=== PATIENT | male | born 1970 | race African-American/Black ===

== ENCOUNTER 2016-06-25 12:06 | Emergency (ER) | payer BC, OTHER ==
[2016-06-25 12:24] VITALS: BP 151/88
--- NOTE | 2016-06-25 13:08 | ERNOTE ---
Medical Problem HPI - General Chief Complaint: General Assessment Time Seen by Provider: 06/25/16 12:53 Source: patient Exam Limitations: no limitations - Immun/Allergies/Home Medications Immunizations: IMMUNIZATION HX Immunizations Up to Date Yes History of Influenza Vaccine No Hx Pneumococcal Vaccination Yes Allergies/Adverse Reactions: Allergies No Known Allergies Allergy (Verified 06/25/16 12:24) Home Medications: HOME MEDICATIONS Albuterol Sulfate [Ventolin Hfa] 18 gm IH QID #1 inhaler 01/30/16 [Last Taken Unknown] Cyclobenzaprine HCl [Flexeril] 10 mg PO TID PRN #30 tab 06/25/16 [Last Taken Unknown] - History of Present History Narrative: The patient has had a 'lump' on the right side of his back for 10+ years that hs not changed much in size and has not hurt before. Since yesterday he has had pain in his right lower back and thinks it might be caused by the 'lump'. He denies any injury, he started a new job three weeks ago at [employer] that involves a lot of reaching and twisting, not much heavy lifting. He has been taking aleve, current pain level is 3/10 Review of Systems - Review of Systems Constitutional: Absent: recent illness, fever ENT: Absent: sore throat Respiratory: Absent: shortness of breath, cough Cardiology: Absent: chest pain Gastrointestinal/Abdominal: Present: nausea. Absent: vomiting, diarrhea, abdominal pain Genitourinary: Absent: no symptoms reported Musculoskeletal: Present: back pain Neurological: Absent: weakness, numbness, tingling - Patient's Past Medical History Patient History - Medical: No pertinent hx Patient History - Cardiac/Respiratory: Asthma Patient History - Cancer: No Hx of Cancer Patient History - Surgical Procedures: No surgical history, Other Patient History - Other: None - Social History Living Situations: home Abuse History: No History of abuse Psych History: Hx of Anxiety, Hx of Depression Smoking Status: Former smoker Alcohol Use: rarely Drug Use: none - Immunizations Immunizations Up to Date: Yes Hx Pneumococcal Vaccination: Yes History of Influenza Vaccine: No Physical Exam - Physical Exam General Appearance: Present: wd/wn, alert, no apparent distress Respiratory: Present: no respiratory distress, normal breath sounds, no accessory muscle use, lungs clear Cardiovascular/Chest: Present: regular rate, rhythm, no murmur Back Exam: Present: normal inspection, no CVA tenderness, no vertebral tenderness, muscle spasm - right paraspinal, other - small subcutaneous nodule in right CVA area,mobile, non tender Neurological Exam: Present: alert, oriented, normal mood/affect, no motor/ sensory deficits Skin Exam: Present: normal color, warm/dry ED Progress - Vital Signs Patient's Vital Signs:: I have reviewed the patient's vital signs. Vital Signs: Vital Signs 06/25/16 12:19 Temperature 36.8 C Pulse Rate 74 Respiratory 14 Rate Blood Pressure 151/88 O2 Sat by Pulse 98 Oximetry - Progress/Reassessment Chief Complaint: General Assessment Departure - Departure Clinical Impression: Back pain Qualifiers: Back pain location: low back pain Chronicity: acute Back pain laterality: right Sciatica presence: without sciatica Qualified Code(s): M54.5 - Low back pain Disposition: Home self-care Condition: Good Instructions: Back Pain, Adult, [id number], Form - Excuse from Work, School, or Physical Activity Additional Instructions: continue to use aleve or advil for pain, use the muscle relaxant as needed and call your doctor for follow up if your symptoms don't get better over the next week Referrals: Norma Simon, [Primary Care Provider] - Prescriptions: Cyclobenzaprine HCl [Flexeril] 10 mg PO TID PRN #30 tab PRN Reason: MUSCLE SPASMS
== END 2016-06-25 13:08 | disposition home or self-care (01) ==
LOC: ER 12:06
DX: M54.5 Low back pain (principal); Z87.891 Personal history of nicotine dependence; J45.909 Unspecified asthma, uncomplicated

== ENCOUNTER 2016-12-05 19:15 | Emergency (ER) | payer OTHER ==
--- NOTE | 2016-12-05 19:45 | ERNOTE ---
<CiroFreddie - Last Filed: 12/05/16 19:37> Upper Extremity HPI - Narrative Date of Service: 12/05/16 - General Extremities Pain Location: shoulder: left Time Seen by Provider: 12/05/16 19:30 Source: patient Exam Limitations: no limitations - Immun/Allergies/Home Medications Immunizations: IMMUNIZATION HX Immunizations Up to Date Yes History of Influenza Vaccine No Hx Pneumococcal Vaccination Yes Allergies/Adverse Reactions: Allergies Allergy/AdvReac Type Severity Reaction Status Date / Time No Known Allergies Allergy Verified 06/25/16 12:24 Home Medications: HOME MEDICATIONS Cyclobenzaprine HCl [Flexeril] 10 mg PO TID PRN #30 tab 06/25/16 [Last Taken Unknown] Albuterol Sulfate [Ventolin Hfa] 18 gm IH QID PRN 12/05/16 [Last Taken Unknown] HYDROcodone/ACETAMINOPHEN [[place] 10-325 Tablet] 1 each PO Q4H PRN #30 tablet [Last Taken Unknown] - History of Present Illness Narrative: Patient presents with 3 weeks of progressive left shoulder pain. Most of the pain is localized diffusely around the left shoulder. It has been constant but gradually worsening. No fever, no redness or swelling but they have noticed muscle wasting around that left shoulder. Generally feels weakness but no focal weakness. Occasionally will have pain shoot down the back of the arm to the wrist but that is uncommon.. He has been trying to get in to see ortho but has not yet been able to schedule an appointment. pain worse with movement of the shoulder. Occurred: other - 3 weeks Method of Injury: Reports: no apparent injury Modifying Factors - (Improves): Reports: other - nothing Modifying Factors - (Worsens): Reports: movement Associated Symptoms: Denies: numbness distally Other Injuries: Reports: none Prior Treament: Denies: recently seen Review of Systems - Review of Systems Constitutional: Absent: fever Respiratory: Absent: shortness of breath Cardiology: Absent: chest pain Musculoskeletal: Present: See HPI Skin: Absent: rash Neurological: Present: See HPI - Patient's Past Medical History Patient History - Medical: No pertinent hx Patient History - Cardiac/Respiratory: Asthma, TIA Patient History - Cancer: No Hx of Cancer Patient History - Surgical Procedures: No surgical history, Other, Hernia Repair , Orthopedic Patient History - Other: None - Social History Living Situations: spouse Abuse History: No History of abuse Psych History: Hx of Anxiety, Hx of Depression Smoking Status: Never smoker Have you smoked in the past 12 months: No Do you dip or chew tobacco: No Alcohol Use: rarely Drug Use: none - Immunizations Immunizations Up to Date: Yes Hx Pneumococcal Vaccination: Yes History of Influenza Vaccine: No Physical Exam - Physical Exam General Appearance: Present: alert, no apparent distress Head Exam: Present: normal inspection, no evidence of injury Eye Exam: Normal inspection: bilateral, PERRL: bilateral Ears, Nose, Throat: Present: normal ENT inspection Neck: Present: normal inspection, nontender, other - no localizing post vertebral tenderness Respiratory: Present: no respiratory distress, normal breath sounds Cardiovascular/Chest: Present: regular rate, rhythm, normal peripheral pulses, other - strong radial pulse Gastrointestinal/Abdominal: Present: normal bowel sounds, nontender, soft Back Exam: Present: no vertebral tenderness Extremity Exam: Present: other - There appears to be some muscle wasting around the left shoulder girdle. There is tenderness in the musclature diffusely around the shoulder. No redness or warmth. ROM compromised by pain but no clear suggestion of septic arthritis. Neurological Exam: Present: alert, other - sensation intact. Biceps tendon reflex intact. Pain limits exam but no clear focal motor or sensory deficits. Skin Exam: Present: normal color, warm/dry ED Progress - Vital Signs Patient's Vital Signs:: I have reviewed the patient's vital signs. Vital Signs: Vital Signs 12/05/16 19:20 Temperature 36.7 C Pulse Rate 68 Respiratory 16 Rate Blood Pressure 132/88 O2 Sat by Pulse 97 Oximetry - Progress/Reassessment Chief Complaint: Shoulder Injury/Pain Progress Note-Subjective: 12/05/16 19:44 He has had shoulder surgery here before. Clinically nothign that appears to be c/w septic arthritis but given the progressive nature of this will screen with labs and crp as well as x-ray. Patient checked out to Dr Meza at shift change pending w/u. Please see his note. - Transfer of Care Physician Sign Out: Freddie Tanner Receiving Physician: Emerson Meza Pending Results: Labs, Pain-control, X-ray results Departure Clinical Impression: Shoulder pain, left - Departure Disposition: Home self-care Condition: Stable Instructions: Shoulder Pain, [id number] Additional Instructions: As we discussed the labs and x-ray do not show a definite cause for your symptoms. I do not see any broken bones. U have a great deal of arthritis in her hip. I want you to take ibuprofen, 3 of the 200 mg tablets, every 6 hours. This is 600 mg every 6 hours. Due this for at least 5 days. This may help decrease inflammation. Take the prescribed hydrocodone for severe pain. No driving or operating machinery while taking this medicine. I want you to call orthopedic surgeon and set up a follow-up appointment. I understand that you have an appointment on Thursday with someone, or they may be getting back to you, but I would recommend that you contact alternative orthopedic surgeon that you have someone working in the background in case this surgeon cannot help you. If you develop any new concerning symptoms or want you to return to the ER. Follow-up with your family doctor as needed Referrals: Norma Simon DO [Primary Care Provider] - Prescriptions: HYDROcodone/ACETAMINOPHEN [[place] 10-325 Tablet] 1 each PO Q4H PRN #30 tablet PRN Reason: Pain <Emerson Meza - Last Filed: 12/05/16 20:25> Upper Extremity HPI - General Extremities Pain Location: shoulder: left - Immun/Allergies/Home Medications Immunizations: IMMUNIZATION HX Immunizations Up to Date Yes History of Influenza Vaccine No Hx Pneumococcal Vaccination Yes ED Progress - Results and Orders Patient's Lab Results:: I have reviewed the patient's lab results. - Vital Signs Vital Signs: Vital Signs 12/05/16 19:20 Temperature 36.7 C Pulse Rate 68 Respiratory 16 Rate Blood Pressure 132/88 O2 Sat by Pulse 97 Oximetry - X-Ray X-Ray #1 X-Ray: shoulder Interpretation: Interp. by me X-ray Comments: Patient has significant degenerative changes of both the glenohumeral joint sides. No fractures are identified.
[2016-12-05] MEDS ORDERED: ORPHENADRINE CITRATE 30 MG/ML VIAL IM ONE (19:46)
[2016-12-05] MEDS ORDERED: KETOROLAC TROMETHAMINE 30 MG/ML VIAL IM ONE (19:46)
[2016-12-05] MEDS ORDERED: MORPHINE SULFATE 4 MG/ML SYRG IM ONE (19:46)
[2016-12-05] MEDS ORDERED: KETOROLAC TROMETHAMINE 30 MG/ML VIAL ONE (19:47)
[2016-12-05] MEDS ORDERED: MORPHINE SULFATE 4 MG/ML SYRG ONE (19:54)
[2016-12-05] MEDS ORDERED: ORPHENADRINE CITRATE 30 MG/ML VIAL ONE (19:54)
[2016-12-05 20:05] LABS: Hematocrit 43.6 % (42.0-52.0); Hemoglobin 15.2 gm/dL (13.5-18.0); Mean Cell Volume 81.2 fl (78-100); Mean Corpuscular Hemoglobin 28.3 pg (27-31); Mean Corpuscular Hgb Conc 34.9 g/dl (32-36); Mean Platelet Volume 10.9 fl (6.0-9.5); Neutrophil # 3.8 K/mm3 (1.3-6.0); Neutrophil % 42.2 % (42-75.0); Platelet Count 204 K/mm3 (150-450); Red Blood Count 5.37 M/mm3 (4.7-6.0); Red Cell Distribution Width 12.9 % (11.5-14.0)
[2016-12-05 20:24] VITALS: BP 120/70
== END 2016-12-05 20:34 | disposition home or self-care (01) ==
LOC: ER 19:15
DX: M25.512 Pain in left shoulder (principal)